=== PATIENT | male | born 1960 | race Caucasian/White ===

== ENCOUNTER 2023-07-06 18:35 | Observation (INO) ==
[2023-07-06 19:29] LABS: Basophils # (auto) 0.12 K/uL (0.00-0.20); Basophils % (auto) 1.7 %; Eosinophils # (auto) 0.76 K/uL (0.00-0.50); Hematocrit (blood only) 46.3 % (42.0-52.0); Hemoglobin 15.5 g/dl (14.0-18.0); Immature Granulocytes # (auto) 0.02 K/uL (0.01-0.20); Immature Granulocytes % (auto) 0.3 %; Lymphocytes # (auto) 1.52 K/uL (1.20-3.40); Mean Corpuscular Hemoglobin 29.8 pg (25.0-34.0); Mean Corpuscular Hgb Conc 33.5 g/dL (32.0-36.0); Mean Corpuscular Volume 88.9 fL (80.0-100.0); Mean Platelet Volume 8.9 fL (9.4-12.4); Monocytes # (auto) 0.65 K/uL (0.11-0.59); Monocytes % (auto) 9.4 %; Neutrophils # (auto) 3.83 K/uL (1.40-6.50); Neutrophils % (auto) 55.6 %; Platelet Count 221 K/uL (130-400); RDW Coefficient of Variation 13.2 % (11.5-14.5); RDW Standard Deviation 43.2 fL (36.4-46.3); Red Blood Count 5.21 M/uL (4.70-6.10)
[2023-07-06 19:43] LABS: Albumin Globulin Ratio 1.6 (0.9-2); Albumin Level 4.4 gm/dl (3.4-5.0); BUN Creatinine Ratio 22.4 (10-20); Bilirubin,Total 0.5 mg/dl (0.2-1.0); Calcium 9.6 mg/dl (8.6-10.3); Creatinine Clr Calc Pharmacy 117.3 ml/min; Globulin 2.8 gm/dl (2.5-4.0); Potassium 4.2 mmol/L (3.5-5.1); Total Protein 7.2 gm/dl (6.0-8.3)
[2023-07-06] MEDS ORDERED: ALBUTEROL 0.083% NEBU SOLN 3 ML VIAL NEB STA (19:47)
[2023-07-06 19:54] LABS: INR 0.9 (0.9-1.1); Partial Thromboplastin Ratio 0.9; Partial Thromboplastin Time 26 Seconds (21-31); Prothrombin Time 10.3 Seconds (9.0-12.0)
[2023-07-06 19:55] LABS: D Dimer 1050 ug/L FEU (0-500)
[2023-07-06 20:13] LABS: Adenovirus PCR Not Detected (NotDetected); Bordetella parapertussis PCR Not Detected (NotDetected); Bordetella pertussis PCR Not Detected (NotDetected); Chlamydia pneumoniae PCR Not Detected (NotDetected); Coronavirus 229E PCR Not Detected (NotDetected); Coronavirus CoV-2 (COVID19)PCR Not Detected (NotDetected); Coronavirus HKU1 PCR Not Detected (NotDetected); Coronavirus NL63 PCR Not Detected (NotDetected); Coronavirus OC43PCR Not Detected (NotDetected); Human Metapneumovirus PCR Not Detected (NotDetected); Influenza A PCR Not Detected (NotDetected); Influenza B PCR Not Detected (NotDetected); Mycoplasma pneumoniae PCR Not Detected (NotDetected); Parainfluenza Virus 1 PCR Not Detected (NotDetected); Parainfluenza Virus 2 PCR Not Detected (NotDetected); Parainfluenza Virus 3 PCR Not Detected (NotDetected); Parainfluenza Virus 4 PCR Not Detected (NotDetected); Respiratory Syncytial VirusPCR Not Detected (NotDetected); Rhinovirus/Enterovirus PCR Not Detected (NotDetected)
[2023-07-06] MEDS ORDERED: methylPREDNISolone 125 MG/2 ML VIAL IV STA (20:21)
--- NOTE | 2023-07-06 20:42 | Emergency Department Note ---
Impression & Plan Asthma exacerbation ED Provider Note NAME: JUAREZ SOTELO AGE: 62 SEX: M : 1960 ARRIVES VIA: Walk-In INFORMANT: Patient, ED PROVIDER(S): Belkis Cloud MD CHIEF COMPLAINT: Shortness of breath, wheezing HPI: This is 62-year-old male multiple presenting for shortness of breath and wheezing. Patient states that he has had persistent about 2 months. He states he is having difficulty breathing as result of his wheezing. He notes that he has tried antibiotics and steroids from his primary care doctor which did not improve his symptoms. He felt he was getting worse. He went back to his primary care doctor a few weeks later and noticed that he had not worsening shortness of breath, difficulty with orthopnea. He had a CTA of the chest done last week, 8 days ago. This did not reveal any pneumonia, does show bronchitis, no PE noted. He has had since then he has not had any improvement in his symptoms despite taking nebulizer treatment. His nebulizers temporarily improve his symptoms but he feels he is getting worse still. He continues to have difficulty breathing, no chest pain, no nausea or vomiting. No fever ROS: See above HPI for pertinent positives & negatives. A total of 10 systems reviewed and were otherwise negative. PAST MEDICAL HISTORY: See Below PAST SURGICAL HISTORY: See Below FAMILY HISTORY: See Below SOCIAL HISTORY: See Below HOME MEDICATIONS: See Below ALLERGIES: See Below VITALS: See Below PHYSICAL EXAMINATION: General: resting comfortably in no acute distress Head: Normocephalic and atraumatic Eyes: Normal inspection, extraocular muscles intact Ear, nose, throat: Normal external exam Neck: Normal range of motion Respiratory: Wheezing in all lung Cardiovascular: Regular rate/rhythm, no murmur GI: soft, nontender, no guarding or rebound Extremities: nontender, moves all extremities Neuro: The patient awake and alert, appropriately conversive, no focal deficits, symmetric faces Skin: Warm, dry, and intact MEDICAL DECISION MAKING: This is 62-year-old male presenting for shortness of breath and wheezing. Patient has 2 months of symptoms. Patient is significantly wheezy here. Patient has orthopnea. Otherwise patient has a left lower extremity swelling, patient thinks it is somewhat chronic as he has had hardware in that ankle. Otherwise negative CTA done about 8 days ago; showing bronchitis. -Consider CHF, pneumonia, asthma, COPD -Blood work shows no significant leukocytosis, anemia, electrolyte disturbances, creatinine elevation, transaminitis, negative viral panel -D-dimer is elevated however patient had a negative CTA done 8 days ago with essentially no change in his symptoms, no worsening and vital signs are reassuring without significant hypoxia or tachycardia -Chest Xray independently interpreted by me showing no pneumothorax, focal opacity, or pleural effusions. -Despite 2 rounds of albuterol, patient continues to have wheezing and slight difficulty breathing -All vital signs are stable, he has continued wheezing, will admit for further workup/treatment of his possible asthma exacerbation Differential diagnosis: See above ER treatment provided: See below Diagnostics interpreted by me: ECG: None Cardiac Monitoring: An order was placed for continuous cardiac monitoring. The monitor shows a rate of 84 with rhythm. Laboratory studies: As stated above and show below. Imaging studies: See below. Past Med/Surg History Medical History Cervical radicular pain Cervical stenosis of spine Colon polyps Diverticular disease History of diverticulitis History of kidney stones History of tachycardia Hyperlipemia Hypertension Prediabetes recently prescribed metformin -- has not started taking yet PVC's (premature ventricular contractions) Sleep apnea does not tolerate CPAP Surgical History History of tonsillectomy History of ankle surgery History of lithotripsy History of esophagogastroduodenoscopy (EGD) History of colonoscopy History of cardiac catheterization History of cardiac radiofrequency ablation Family History Daughter Breast cancer Sister Ovarian cancer Father Myocardial infarction Other No family history of adverse response to anesthesia Denies family history of Prostate cancer Colorectal cancer Social History Smoking Status: Never smoker Second Hand Exposure: No; Do You Dip or Chew Tobacco: No; Hx Alcohol Use: Yes Alcohol Intake Frequency: Monthly or Less Hx Substance Use: No Preferred Language: Occitan Communication Ability: Effective Visual Impairment: No Limitations Hearing Ability: Normal Veterinary Meat Inspector Required: No Beliefs That Will Affect Care: None marital status: / Current Living Situation: Spouse current occupational status: employed current occupation: plant engineering manager Feels Safe at Home: Yes Childhood Exposure to Second-Hand Smoke: No Diet: regular Diet Comment: Regular caffeine: Yes during the past year weight has: remained stable Dental Care, Regularly: No Physical Activity Frequency: 1-2 Times per Week Seatbelt Use: always Assistive Devices: Glasses Allergies Allergies Allergy/AdvReac Type Severity Reaction Status Date / Time No Known Allergies Allergy Verified 07/01/23 11:14 Home Meds Previous Rx's Medication Instructions Recorded metoprolol succinate 25 mg 25 mg PO QAM #90 tabs 05/24/23 tablet,extended release 24 hr ramipril 10 mg capsule 10 mg PO QAM #90 caps 05/24/23 rosuvastatin 20 mg tablet 20 mg PO QAM #90 tabs 05/24/23 albuterol sulfate 90 mcg/actuation 2 puff inhalation Q6H PRN 05/28/23 aerosol inhaler shortness of breath or wheezing #6.7 grams albuterol sulfate 1.25 mg/3 mL 1.25 mg (3 mL) inhalation QID PRN 07/01/23 solution for nebulization shortness of breath or wheezing #75 mL compressor, for nebulizer #1 ea 07/01/23 dextromethorphan HBr 15 mg/5 mL 15 mg (5 mL) PO Q8H PRN cough #118 07/06/23 oral liquid mL Results & Data (ED) Vital Signs Vital Signs - 24 hr 07/06/23 18:39 07/06/23 18:46 07/06/23 18:46 Temperature 36.8 C Temperature Source Temporal Artery Scan Pulse Rate 85 84 85 Pulse Rate from SpO2 Sensor 85 Respiratory Rate 20 16 Blood Pressure 186/115 H Blood Pressure Mean 138 Pulse Oximetry 95 94 Oxygen Delivery Method Room Air Oxygen Flow Rate Sepsis Recent Fever Within 48 Hours No Sepsis New/Unexplained Change in Mental Status No Sepsis Action Taken by Nursing No Action Required 07/06/23 18:50 07/06/23 18:51 07/06/23 19:00 Temperature Temperature Source Pulse Rate 86 111 H Pulse Rate from SpO2 Sensor 85 101 H Respiratory Rate 16 24 Blood Pressure Blood Pressure Mean Pulse Oximetry 95 95 97 Oxygen Delivery Method Room Air Oxygen Flow Rate 0 Sepsis Recent Fever Within 48 Hours Sepsis New/Unexplained Change in Mental Status Sepsis Action Taken by Nursing 07/06/23 19:10 07/06/23 19:16 07/06/23 19:18 Temperature Temperature Source Pulse Rate 81 Pulse Rate from SpO2 Sensor 82 Respiratory Rate 23 Blood Pressure 129/91 Blood Pressure Mean 94 Pulse Oximetry 94 Oxygen Delivery Method Room Air Oxygen Flow Rate Sepsis Recent Fever Within 48 Hours Sepsis New/Unexplained Change in Mental Status Sepsis Action Taken by Nursing 07/06/23 19:18 07/06/23 19:20 07/06/23 19:30 Temperature Temperature Source Pulse Rate 80 79 Pulse Rate from SpO2 Sensor 85 79 Respiratory Rate 17 20 Blood Pressure 111/69 Blood Pressure Mean 92 Pulse Oximetry 92 95 Oxygen Delivery Method Oxygen Flow Rate Sepsis Recent Fever Within 48 Hours Sepsis New/Unexplained Change in Mental Status Sepsis Action Taken by Nursing 07/06/23 19:30 07/06/23 19:40 07/06/23 19:50 Temperature Temperature Source Pulse Rate 92 H 84 77 Pulse Rate from SpO2 Sensor 90 83 76 Respiratory Rate 16 21 23 Blood Pressure Blood Pressure Mean Pulse Oximetry 94 93 93 Oxygen Delivery Method Oxygen Flow Rate Sepsis Recent Fever Within 48 Hours Sepsis New/Unexplained Change in Mental Status Sepsis Action Taken by Nursing 07/06/23 20:00 07/06/23 20:07 07/06/23 20:07 Temperature Temperature Source Pulse Rate 72 81 Pulse Rate from SpO2 Sensor 71 79 Respiratory Rate 18 23 Blood Pressure 137/90 Blood Pressure Mean 96 Pulse Oximetry 94 95 Oxygen Delivery Method Oxygen Flow Rate Sepsis Recent Fever Within 48 Hours Sepsis New/Unexplained Change in Mental Status Sepsis Action Taken by Nursing 07/06/23 20:10 07/06/23 20:20 07/06/23 20:46 Temperature Temperature Source Pulse Rate 94 H 77 86 Pulse Rate from SpO2 Sensor 98 H 71 89 Respiratory Rate 23 15 15 Blood Pressure Blood Pressure Mean Pulse Oximetry 98 97 94 Oxygen Delivery Method Oxygen Flow Rate Sepsis Recent Fever Within 48 Hours Sepsis New/Unexplained Change in Mental Status Sepsis Action Taken by Nursing 07/06/23 20:50 07/06/23 21:00 07/06/23 21:10 Temperature Temperature Source Pulse Rate 77 82 79 Pulse Rate from SpO2 Sensor 78 81 79 Respiratory Rate 21 24 16 Blood Pressure Blood Pressure Mean Pulse Oximetry 94 94 92 Oxygen Delivery Method Oxygen Flow Rate Sepsis Recent Fever Within 48 Hours Sepsis New/Unexplained Change in Mental Status Sepsis Action Taken by Nursing 07/06/23 21:20 07/06/23 21:30 07/06/23 21:40 Temperature Temperature Source Pulse Rate 83 78 75 Pulse Rate from SpO2 Sensor 82 77 77 Respiratory Rate 19 22 21 Blood Pressure Blood Pressure Mean Pulse Oximetry 94 94 91 Oxygen Delivery Method Oxygen Flow Rate Sepsis Recent Fever Within 48 Hours Sepsis New/Unexplained Change in Mental Status Sepsis Action Taken by Nursing 07/06/23 21:50 07/06/23 22:00 07/06/23 22:10 Temperature Temperature Source Pulse Rate 77 79 76 Pulse Rate from SpO2 Sensor 78 78 79 Respiratory Rate 20 20 19 Blood Pressure Blood Pressure Mean Pulse Oximetry 91 91 90 Oxygen Delivery Method Oxygen Flow Rate Sepsis Recent Fever Within 48 Hours Sepsis New/Unexplained Change in Mental Status Sepsis Action Taken by Nursing 07/06/23 22:20 07/06/23 22:30 07/06/23 22:40 Temperature Temperature Source Pulse Rate 81 88 75 Pulse Rate from SpO2 Sensor 80 85 74 Respiratory Rate 19 18 17 Blood Pressure Blood Pressure Mean Pulse Oximetry 92 90 90 Oxygen Delivery Method Oxygen Flow Rate Sepsis Recent Fever Within 48 Hours Sepsis New/Unexplained Change in Mental Status Sepsis Action Taken by Nursing 07/06/23 23:02 Temperature Temperature Source Pulse Rate 84 Pulse Rate from SpO2 Sensor Respiratory Rate Blood Pressure Blood Pressure Mean Pulse Oximetry Oxygen Delivery Method Oxygen Flow Rate Sepsis Recent Fever Within 48 Hours Sepsis New/Unexplained Change in Mental Status Sepsis Action Taken by Nursing Laboratory Data 07/06/23 19:10 07/06/23 19:10 Lab Results 07/06/23 07/06/23 Range/Units 19:05 19:10 WBC 6.90 (4.8-10.8) K/ul RBC 5.21 (4.70-6.10) M/uL Hgb 15.5 (14.0-18.0) g/dl Hct 46.3 (42.0-52.0) % MCV 88.9 (80.0-100.0) fL MCH 29.8 (25.0-34.0) pg MCHC 33.5 (32.0-36.0) g/dL RDW Std Deviation 43.2 (36.4-46.3) fL RDW Coeff of Del 13.2 (11.5-14.5) % Plt Count 221 (130-400) K/uL MPV 8.9 L (9.4-12.4) fL Immature Gran % (Auto) 0.3 % Neut % (Auto) 55.6 % Lymph % (Auto) 22.0 % Ralls % (Auto) 9.4 % Eos % (Auto) 11.0 % Baso % (Auto) 1.7 % Neut # (Auto) 3.83 (1.40-6.50) K/uL Lymph # (Auto) 1.52 (1.20-3.40) K/uL Ralls # (Auto) 0.65 H (0.11-0.59) K/uL Eos # (Auto) 0.76 H (0.00-0.50) K/uL Baso # (Auto) 0.12 (0.00-0.20) K/uL Immature Gran # (Auto) 0.02 (0.01-0.20) K/uL PT 10.3 (9.0-12.0) Seconds INR 0.9 (0.9-1.1) APTT 26 (21-31) Seconds PTT Ratio 0.9 D-Dimer 1050 H* (0-500) ug/L FEU Sodium 142 (136-145) mmol/L Potassium 4.2 (3.5-5.1) mmol/L Chloride 109 H (98-107) mmol/L Carbon Dioxide 26 (21-32) mmol/L Anion Gap 7 (3-11) BUN 19 (6-23) mg/dl Creatinine 0.85 (0.6-1.4) mg/dl Est Cr Clr Drug Dosing 117.3 ml/min Est GFR ( Amer) 109.0 ml/min Est GFR (Non-Af Amer) 94.0 ml/min BUN/Creatinine Ratio 22.4 H (10-20) Glucose 74 (70-99(Fasting)) mg/dl Calcium 9.6 (8.6-10.3) mg/dl Total Bilirubin 0.5 (0.2-1.0) mg/dl AST 25 (13-39) U/L ALT 21 (7-52) U/L Alkaline Phosphatase 52 (34-104) U/L B-Natriuretic Peptide 18 (0-100) pg/ml Total Protein 7.2 (6.0-8.3) gm/dl Albumin 4.4 (3.4-5.0) gm/dl Globulin 2.8 (2.5-4.0) gm/dl Albumin/Globulin Ratio 1.6 (0.9-2) Adenovirus (PCR) Not Detected (NotDetected) B. pertussis DNA (PCR) Not Detected (NotDetected) B.parapertussis DNA PCR Not Detected (NotDetected) C. pneumoniae DNA (PCR) Not Detected (NotDetected) Coronavirus OC43 (PCR) Not Detected (NotDetected) Coronavirus HKU1 (PCR) Not Detected (NotDetected) Coronavirus 229E (PCR) Not Detected (NotDetected) SARS-CoV-2 (PCR) Not Detected (NotDetected) Coronavirus NL63 (PCR) Not Detected (NotDetected) Human Metapneumovir PCR Not Detected (NotDetected) Influenza Type A (PCR) Not Detected (NotDetected) Influenza Type B (PCR) Not Detected (NotDetected) M. pneumoniae (PCR) Not Detected (NotDetected) Parainfluenza 1 (PCR) Not Detected (NotDetected) Parainfluenza 2 (PCR) Not Detected (NotDetected) Parainfluenza 3 (PCR) Not Detected (NotDetected) Parainfluenza 4 (PCR) Not Detected (NotDetected) RSV (PCR) Not Detected (NotDetected) Entero/Rhino (PCR) Not Detected (NotDetected) Administered Medications Discontinued Medications Albuterol (Albuterol 0.083% Nebu Soln 3 Ml Vial) 2.5 mg NEB NOW STA; Protocol Stop: 07/06/23 19:48 Last Admin: 07/06/23 20:07 Dose: 2.5 mg Documented By: JO Albuterol (Albuterol 0.5% Neb Soln 2.5 Mg/0.5 Ml Vial) 2.5 mg NEB NOW STA; Protocol Stop: 07/06/23 21:17 Last Admin: 07/06/23 21:20 Dose: 2.5 mg Documented By: JO Methylprednisolone (Methylprednisolone 125 Mg/2 Ml Vial) 125 mg IV NOW STA Stop: 07/06/23 20:22 Last Admin: 07/06/23 20:24 Dose: 125 mg Documented By: JO Imaging Data Radiologist's Impression: Venous Doppler Study 07/06/23 20:21 Exam(s): US VENOUS LEFT LOWER EXTREMITY EXAM: US Duplex Left Lower Extremity Veins CLINICAL HISTORY: Reason for exam: Swelling. TECHNIQUE: Real-time duplex ultrasound scan of the left lower extremity veins integrating B-mode two-dimensional vascular structure, Doppler spectral analysis, color flow Doppler imaging and compression. COMPARISON: No relevant prior studies available. FINDINGS: Deep veins: Echogenic bands in the left popliteal vein which may represent a sequelae of chronic deep venous thrombosis. No acute DVT in the visualized common femoral, femoral, proximal deep femoral or popliteal veins. The veins demonstrate normal color flow, are normally compressible, with normal phasic flow and/or augmentation response. Soft tissues: No acute findings. No popliteal cyst. IMPRESSION: No evidence of acute left lower extremity deep venous thrombosis. Echogenic bands in the left popliteal vein which may represent a sequelae of chronic deep venous thrombosis. Electronically signed by: Khoa Cloud M.D. 07/07/23 00:46 AM Discharge Plan Visit Data Chief Complaint: Shortness of Breath/Dyspnea Stated Complaint: SOB, COUGH, CHEST TIGHTNESS ED Provider: Belkis Cloud Discharge Problem: Asthma exacerbation Patient Disposition: Admitted As Inpatient Discharge Instructions Interventions: ED Discharge Assessment Last Done: 07/07/23 00:26
[2023-07-06] MEDS ORDERED: ALBUTEROL 0.5% NEB SOLN 2.5 MG/0.5 ML VIAL NEB STA (21:16)
--- NOTE | 2023-07-06 22:24 | History & Physical Report ---
Date of Service July 06, 2023 Assessment & Plan (1) Dyspnea: Plan: Patient is a 62-year-old male with past medical history of obesity, cervical stenosis of spine, hypertension, prediabetes, hyperlipidemia, and PVCs who presents to the hospital for evaluation of shortness of breath. Unsure of specific etiology at this time but seems to be an exacerbation of a chronic issue. -Admit to [facility], no telemetry indication at this time -Imaging overall showing no pathology excluding pulmonary embolism, pneumonia, or consolidation -Likely multifactorial in the setting of mild bronchitis, asthma exacerbation, obesity, and possibly undiagnosed sleep apnea -Patient would benefit from pulmonary function testing which I recommend be done outpatient -DuoNeb every 4 hours as needed for wheezing -See asthma exacerbation treatment below (2) Asthma exacerbation: Plan: -Started on 125 mg of methylprednisolone in the ED, switch to 40 mg daily for 5 days for clinical -Seems asthma has been uncontrolled for some time likely due to recent bronchitis in the past 2 months, add Symbicort twice daily to start tomorrow -Patient will benefit from pulmonary function test in outpatient setting -If exacerbation worsens or is refractory to above treatment, will additionally give magnesium. (3) Hypoxia: Plan: -Secondary to conditions above -Witnessed O2 level dropped to 87 was in the room with good waveform prior to conversing with patient. -O2 goal of 90% (4) Cough: Plan: -Secondary to bronchitis and postnasal drip -Start Mucinex in addition to IV steroid -Robitussin AC as needed (5) Obesity: Plan: - As above, may be contributing and causing a restrictive pattern (6) Cervical stenosis of spine: Plan: - Noted, no medications for this (7) Hypertension: Plan: -Continue ramipril -In theory LEBRON inhibitors can have the side effect of cough at any time despite long-term use, consider switching to ARB (8) Prediabetes: Plan: - Noted, no need for insulin at this time (9) Hyperlipemia: Plan: - Continue statin Plan Disposition: Admit to [facility] for breathing treatments and monitoring patient DVT prophylaxis: Low risk Diet: Regular CODE STATUS: Full code Admission and Anticipated Discharge Date Admission Date: Attending addendum: I have physically seen this patient, have supervised the medical residents activities, and agree with the H&P unless as otherwise noted. Assessment and Plan: Asthma exacerbation with hypoxia/bronchitis- Presenting symptom of dyspnea on exertion Status post methylprednisolone 125 mg IV in ED Admitted on methylprednisolone 40 mg IV daily Duonebs every 4 hours while awake and every 2 hours when necessary. Azithromycin 500 mg IV daily for likely bronchitis Guaifenesin extended release 12 mg p.o. twice daily Starting Symbicort 1 inhalation twice daily tomorrow O2 saturation on room air 90%, placed on oxygen, titrate to keep pulse ox around 94% Hypertension- Continue metoprolol succinate and ramipril with hold parameters Hyperlipidemia- Continue rosuvastatin History of Present Illness Chief Complaint: Dyspnea Primary Care Provider: AGUSTO Meyer Patient is a 62-year-old male with past medical history of obesity, cervical stenosis of spine, hypertension, prediabetes, hyperlipidemia, and PVCs who presents to the hospital for evaluation of shortness of breath. It seems that this has been a 2-month long issue since being diagnosed with bronchitis. He has been on several antibiotics and bouts of steroids improve his symptoms at the time but do not seem to be resolving the problem. He has occasional flares of coughing that is dry and nonproductive. No history of hemoptysis. Denies any nausea or vomiting. No history of pulmonary function testing. He does take an inhaler at home but states that this does not always help his shortness of breath. Denies any chest pain or headache. Patient is a never smoker. No other complaints at this time. ED course: Patient brought back and evaluated by provider. Labs are unremarkable other than a D-dimer of greater than 1000. Chest x-ray is unremarkable. Patient had CTA of the chest on 07/01/2023 with evidence of mild bronchitis without pulmonary embolism. Venous Doppler was ordered due to elevated D-dimer and is pending at the time of writing this note. Patient was given steroids and DuoNeb with some improvement. The hospitalist service was consulted for admission for subjective dyspnea without hypoxia. Allergies Allergy/AdvReac Type Severity Reaction Status Date / Time No Known Allergies Allergy Verified 07/01/23 11:14 Home Medications Medication Instructions Recorded Confirmed Type metoprolol succinate 25 mg 25 mg PO QAM #90 tabs 05/24/23 07/06/23 Rx tablet,extended release 24 hr ramipril 10 mg capsule 10 mg PO QAM #90 caps 05/24/23 07/06/23 Rx rosuvastatin 20 mg tablet 20 mg PO QAM #90 tabs 05/24/23 07/06/23 Rx albuterol sulfate 90 mcg/actuation 2 puff inhalation Q6H PRN 05/28/23 07/06/23 Rx aerosol inhaler shortness of breath or wheezing #6.7 grams albuterol sulfate 1.25 mg/3 mL 1.25 mg (3 mL) inhalation QID PRN 07/01/23 Rx solution for nebulization shortness of breath or wheezing #75 mL compressor, for nebulizer #1 ea 07/01/23 07/06/23 Rx dextromethorphan HBr 15 mg/5 mL 15 mg (5 mL) PO Q8H PRN cough #118 07/06/23 07/06/23 Rx oral liquid mL Past Med/Surg History Medical History Cervical radicular pain Cervical stenosis of spine Colon polyps Diverticular disease History of diverticulitis History of kidney stones History of tachycardia Hyperlipemia Hypertension Prediabetes recently prescribed metformin -- has not started taking yet PVC's (premature ventricular contractions) Sleep apnea does not tolerate CPAP Surgical History History of tonsillectomy History of ankle surgery History of lithotripsy History of esophagogastroduodenoscopy (EGD) History of colonoscopy History of cardiac catheterization History of cardiac radiofrequency ablation Family History Daughter Breast cancer Sister Ovarian cancer Father Myocardial infarction Other No family history of adverse response to anesthesia Denies family history of Prostate cancer Colorectal cancer Social History Smoking Status: Never smoker Tobacco Type: Smokeless Tobacco (Dip or Chew) Second Hand Exposure: No; Do You Dip or Chew Tobacco: No; Hx Alcohol Use: Yes Alcohol type: beer Alcohol Intake Frequency: Monthly or Less Hx Substance Use: No Preferred Language: Syriac Communication Ability: Effective Visual Impairment: No Limitations Hearing Ability: Normal Janitorial Cleaner Required: No Beliefs That Will Affect Care: None marital status: / Current Living Situation: Other Current Living Situation Comment: lives w/ sister current occupational status: employed current occupation: gas plant worker Other Information That Helps Us Care for You: No Feels Safe at Home: Yes Safety Concerns: Feels Safe At This Time Childhood Exposure to Second-Hand Smoke: No Diet: regular Diet Comment: Regular caffeine: Yes during the past year weight has: remained stable Dental Care, Regularly: No Physical Activity Frequency: 1-2 Times per Week Seatbelt Use: always Assistive Devices: Nebulizer Review of Systems Review of Systems: All systems reviewed & are unremarkable except as noted in HPI & below Physical Exam Constitutional: WD/WN, vitals as above + obese Eyes: + anicteric sclerae Neck: trachea midline, no thyromegaly + thick neck Respiratory: normal respiratory effort Auscultation: + wheezes (diffuse) Cardiovascular: RRR, no murmur, no edema Vessels: no JVD Gastrointestinal (Abdomen): normal bowel sounds, soft, nontender, no hepatosplenomegaly Musculoskeletal: Head/Neck/Chest: normocephalic and head atraumatic Skin: no rashes, warm and dry Neurologic: moves all extremities Results & Data Results & Data Vital Signs (Past 12 Hours) Vital Signs Temp Pulse Resp BP Pulse Ox O2 Del Method O2 Flow Rate 07/06/23 22:00 79 20 91 07/06/23 21:50 77 20 91 07/06/23 21:40 75 21 91 07/06/23 21:30 78 22 94 07/06/23 21:20 83 19 94 07/06/23 21:10 79 16 92 07/06/23 21:00 82 24 94 07/06/23 20:50 77 21 94 07/06/23 20:46 86 15 94 07/06/23 20:20 77 15 97 07/06/23 20:10 94 H 23 98 07/06/23 20:07 137/90 07/06/23 20:07 81 23 95 07/06/23 20:00 72 18 94 07/06/23 19:50 77 23 93 07/06/23 19:40 84 21 93 07/06/23 19:30 92 H 16 94 07/06/23 19:30 111/69 07/06/23 19:20 79 20 95 07/06/23 19:18 80 17 92 07/06/23 19:18 129/91 12/19/23 19:16 Room Air 07/06/23 19:10 81 23 94 07/06/23 19:00 111 H 24 97 07/06/23 18:51 95 Room Air 0 07/06/23 18:50 86 16 95 07/06/23 18:46 85 16 94 07/06/23 18:46 84 07/06/23 18:39 36.8 C 85 20 186/115 H 95 Room Air (5) Obesity Body mass index: BMI 37.0-37.9 Obesity classification: adult class 2 (BMI 35 - 39.9) Obesity type: unspecified obesity type Serious obesity comorbidity presence: without serious comorbidity Qualified Code(s): E66.9 - Obesity, unspecified; Z68.37 - Body mass index [BMI] 37.0-37.9, adult (7) Hypertension Hypertension type: primary hypertension Qualified Code(s): I10 - Essential (primary) hypertension (9) Hyperlipemia Hyperlipidemia type: mixed hyperlipidemia Qualified Code(s): E78.2 - Mixed hyperlipidemia
[2023-07-07] MEDS ORDERED: ACETAMINOPHEN 325 MG TAB PO PRN (00:25)
--- NOTE | 2023-07-07 00:46 | Ultrasound Report ---
Exam(s): US VENOUS LEFT LOWER EXTREMITY EXAM: US Duplex Left Lower Extremity Veins CLINICAL HISTORY: Reason for exam: Swelling. TECHNIQUE: Real-time duplex ultrasound scan of the left lower extremity veins integrating B-mode two-dimensional vascular structure, Doppler spectral analysis, color flow Doppler imaging and compression. COMPARISON: No relevant prior studies available. FINDINGS: Deep veins: Echogenic bands in the left popliteal vein which may represent a sequelae of chronic deep venous thrombosis. No acute DVT in the visualized common femoral, femoral, proximal deep femoral or popliteal veins. The veins demonstrate normal color flow, are normally compressible, with normal phasic flow and/or augmentation response. Soft tissues: No acute findings. No popliteal cyst. IMPRESSION: No evidence of acute left lower extremity deep venous thrombosis. Echogenic bands in the left popliteal vein which may represent a sequelae of chronic deep venous thrombosis. Electronically signed by: Khoa Cloud M.D. 07/07/23 00:46 AM
[2023-07-07] MEDS: ALBUT/IPRATROP 3MG/0.5MG NEB 3 ML VIAL NEB PRN ×2 (01:37→14:05)
[2023-07-07] MEDS: ROSUVASTATIN CALCIUM 20 MG TAB PO SCH (07:46)
[2023-07-07] MEDS: ENALAPRIL MALEATE 10 MG TAB PO SCH (07:46)
[2023-07-07] MEDS: METOPROLOL SUCC 25MG EXT REL TAB PO SCH (07:46)
[2023-07-07] MEDS: FLUTICASONE/VILANTEROL 100/25MCG 14 PUFFS/INHALER INH SCH (07:46)
[2023-07-07 07:50] LABS: Hematocrit (blood only) 48.3 % (42.0-52.0); Hemoglobin 16.1 g/dl (14.0-18.0); Mean Corpuscular Hemoglobin 29.5 pg (25.0-34.0); Mean Corpuscular Hgb Conc 33.3 g/dL (32.0-36.0); Mean Corpuscular Volume 88.6 fL (80.0-100.0); Mean Platelet Volume 9.2 fL (9.4-12.4); Platelet Count 242 K/uL (130-400); RDW Coefficient of Variation 13.2 % (11.5-14.5); RDW Standard Deviation 42.5 fL (36.4-46.3); Red Blood Count 5.45 M/uL (4.70-6.10)
--- NOTE | 2023-07-07 07:58 | XRay Report ---
XR chest 1V portable HISTORY: Dyspnea COMPARISON: Chest 06/07/2023. FINDINGS: There are low lung volumes. The heart is mildly enlarged. No focal lung consolidations to s uggest a pneumonia. No evidence for pulmonary edema. No acute fractures identified. IMPRESSION: Mild cardiomegaly. Otherwise, no acute process within the chest. ACT 112: Negative or not required by law. Electronically signed by: Prashant Peña M.D. 07/07/2023 7:57 AM
[2023-07-07 08:14] LABS: BUN Creatinine Ratio 26.5 (10-20); Calcium 9.7 mg/dl (8.6-10.3); Creatinine Clr Calc Pharmacy 125.7 ml/min; Est GFR (African American) 110.1 ml/min; Potassium 4.5 mmol/L (3.5-5.1)
[2023-07-07] MEDS ORDERED: methylPREDNISolone 40 MG in SYRINGE 0 ML IV SCH (09:00)
[2023-07-07 09:01] LABS: Magnesium 2.2 mg/dl (1.7-2.4)
--- NOTE | 2023-07-07 18:41 | Hospitalist Progress Note ---
Date of Service July 07, 2023 Assessment & Plan (1) Dyspnea: Plan: Unsure of specific etiology at this time but seems to be an exacerbation of a chronic issue. -Imaging overall showing no pathology excluding pulmonary embolism, pneumonia, or consolidation -CTA done 07/01 -Patient would benefit from pulmonary function testing, which could be done outpatient -DuoNeb every 4 hours as needed for wheezing -Patient reporting change in sputum color --> sputum cultured ordered. -Incentive Spirometer -Will check CT sinus and echo (2) Asthma exacerbation: Plan: Patient tells me he has never been diagnosed with asthma in the past, had just received inhalers and nebulizer machine in the last two months. -Started on 125 mg of methylprednisolone in the ED, switch to 40 mg daily 07/07 - increased to BID -Add Symbicort twice daily to start tomorrow -Patient will benefit from pulmonary function test in outpatient setting (3) Hypoxia: Plan: -Secondary to conditions above -Currently on room air -O2 goal of 90% (4) Cough: Plan: -Secondary to bronchitis and postnasal drip -Start Mucinex in addition to IV steroid -Robitussin AC as needed (5) Obesity: Plan: - As above, may be contributing and causing a restrictive pattern (6) Cervical stenosis of spine: Plan: - Noted, no medications for this (7) Hypertension: Plan: -Continue ramipril -In theory LEBRON inhibitors can have the side effect of cough at any time despite long-term use, consider switching to ARB (8) Prediabetes: Plan: - Noted, no need for insulin at this time (9) Hyperlipemia: Plan: - Continue statin Plan Dispo: continued inpatient stay DVT prophylaxis: Low risk Admission and Anticipated Discharge Date Admission Date: July 06, 2023 Subjective Patient seen just after lunch sitting at the side of the bed. States he has been dealing with cough and shortness of breath for the last two months. Has been to PCP and ER multiple times given abx, steroids and cough medicine and nothing seems to help. States his friends kicked him out of [employer] camp because he was coughing so much. However today is the best he has felt in the last two months, but gets short of breath still very easily. Cough has been mainly nonproductive. Has some swelling in the left leg but has had multiple surgery and reports "pins and rods" and reports at baseline. No swelling in the other legs Reports issues with tachycardia ~30 years ago, had to have cardiac ablation x3, last time being about 12 years ago and has not had issues yet. but reports "would not be surprised if my heart was causing this" Of note - his in October and has lost ~40 lbs since then. has been more active. Review of Systems Review of Systems: All systems reviewed & are unremarkable except as noted in Subjective Physical Exam Physical Exam: General: WN/WD, NAD, VS as above Resp: quick to be short of breath, diminished in the based, inspiratory and expiratory wheeze throughout CV: RRR, no murmur, Abd: normal bowel sounds, non tender, no hepatosplenomegaly Extremities: Moves all extremities, Edema to the left leg but patient reports chronic s/p surgery, no edema to the right leg. Neuro: A&O x3, Skin: intact, no lesions noted Results & Data Results & Data Vital Signs (Past 12 Hours) Vital Signs Temp Pulse Resp BP Pulse Ox O2 Del Method 07/07/23 15:24 37.0 C 99 H 18 136/89 92 Room Air 07/07/23 14:08 Room Air 07/07/23 14:05 102 H 24 89 L Room Air 07/07/23 09:10 Room Air 07/07/23 07:31 36.5 C 104 H 16 154/100 H 93 Room Air Laboratory Results CBC and chemistry and Mag reviewed PG Care Time/CCT Total # of Minutes Spent Total Time Spent with Patient: Total time spent is greater than 50% in coordination of care (as documented) at patient's floor/unit and/or counseling patient: Coding Level of Care Code 76388 SUB INP/OBS CARE 2/35MIN Diagnoses Dyspnea R06.00 Asthma exacerbation J45.901 Hypoxia R09.02 Cough R05.9 Class 2 obesity without serious comorbidity with body mass index (BMI) of 37.0 to 37.9 in adult, unspecified obesity type E66.9; Z68.37 Body mass index: BMI 37.0-37.9 Obesity classification: adult class 2 (BMI 35 - 39.9) Obesity type: unspecified obesity type Serious obesity comorbidity presence: without serious comorbidity Cervical stenosis of spine M48.02 Primary hypertension I10 Hypertension type: primary hypertension Prediabetes R73.03 Mixed hyperlipidemia E78.2 Hyperlipidemia type: mixed hyperlipidemia (5) Obesity Body mass index: BMI 37.0-37.9 Obesity classification: adult class 2 (BMI 35 - 39.9) Obesity type: unspecified obesity type Serious obesity comorbidity presence: without serious comorbidity Qualified Code(s): E66.9 - Obesity, unspecified; Z68.37 - Body mass index [BMI] 37.0-37.9, adult (7) Hypertension Hypertension type: primary hypertension Qualified Code(s): I10 - Essential (primary) hypertension (9) Hyperlipemia Hyperlipidemia type: mixed hyperlipidemia Qualified Code(s): E78.2 - Mixed hyperlipidemia
--- NOTE | 2023-07-07 20:01 | Billing Data ---
Date of Service July 07, 2023 Coding Level of Care Code 26061 INT INP/OBS CARE
[2023-07-07] MEDS: ALBUT/IPRATROP 3MG/0.5MG NEB 3 ML VIAL NEB SCH (22:01)
--- NOTE | 2023-07-07 22:02 | CT Scan Report ---
Exam(s): CT SINUSES EXAM: CT Maxillofacial Sinuses Without Intravenous Contrast CLINICAL HISTORY: Reason for exam: prolonged bronchitis/SOB, elevated eosinophils. TECHNIQUE: Computed tomography images of the maxillofacial sinuses without intravenous contrast. CTDI is 31.09 mGy and DLP is 598.57 mGy-cm. Automated exposure control was utilized for the study. A dose lowering technique was utilized adhering to the principles of ALARA. COMPARISON: No relevant prior studies available. FINDINGS: Maxillary sinuses: Unremarkable. No air-fluid levels. Sphenoid sinuses: Unremarkable. No air-fluid levels. Frontal sinuses: Unremarkable. No air-fluid levels. Ethmoid air cells: Unremarkable. No air-fluid levels. Nasal cavity/septum: No acute findings. Bones/joints: No acute fracture. Soft tissues: Unremarkable. IMPRESSION: Normal sinus CT. Electronically signed by: Marci Lucas MD 07/07/23 22:01 PM
[2023-07-07] MEDS: methylPREDNISolone 40 MG in SYRINGE 0 ML IV SCH (22:03)
[2023-07-08 08:08] LABS: Basophils # (auto) 0.02 K/uL (0.00-0.20); Basophils % (auto) 0.1 %; Hematocrit (blood only) 47.6 % (42.0-52.0); Hemoglobin 15.7 g/dl (14.0-18.0); Immature Granulocytes % (auto) 0.7 %; Lymphocytes # (auto) 0.88 K/uL (1.20-3.40); Lymphocytes % (auto) 5.9 %; Mean Corpuscular Hemoglobin 29.7 pg (25.0-34.0); Mean Corpuscular Volume 90.2 fL (80.0-100.0); Mean Platelet Volume 8.9 fL (9.4-12.4); Monocytes # (auto) 0.62 K/uL (0.11-0.59); Monocytes % (auto) 4.2 %; Neutrophils # (auto) 13.24 K/uL (1.40-6.50); Neutrophils % (auto) 89.1 %; Platelet Count 248 K/uL (130-400); RDW Coefficient of Variation 13.2 % (11.5-14.5); Red Blood Count 5.28 M/uL (4.70-6.10); White Blood Count 14.86 K/ul (4.8-10.8)
[2023-07-08 08:20] LABS: C Reactive Protein < 0.50 mg/dl (0-0.5); Creatinine Clr Calc Pharmacy 114.7 ml/min; Est GFR (African American) 105.1 ml/min; Est GFR (Non-African American) 90.6 ml/min
[2023-07-08 08:35] LABS: Estimated Average Glucose 131 mg/dl; Hemoglobin A1C 6.2 % (4.5-5.6)
[2023-07-08] MEDS: ALBUT/IPRATROP 3MG/0.5MG NEB 3 ML VIAL NEB SCH (08:46)
[2023-07-08] MEDS: FLUTICASONE/VILANTEROL 100/25MCG 14 PUFFS/INHALER INH SCH (09:15)
[2023-07-08] MEDS: methylPREDNISolone 40 MG in SYRINGE 0 ML IV SCH (09:16)
[2023-07-08] MEDS ORDERED: CETIRIZINE HCL 10 MG TABLET PO SCH (09:45)
[2023-07-08] MEDS: ENALAPRIL MALEATE 10 MG TAB PO SCH (10:11)
[2023-07-08] MEDS: METOPROLOL SUCC 25MG EXT REL TAB PO SCH (10:11)
[2023-07-08] MEDS: ROSUVASTATIN CALCIUM 20 MG TAB PO SCH (10:11)
[2023-07-08] MEDS ORDERED: ALBUT/IPRATROP 3MG/0.5MG NEB 3 ML VIAL NEB PRN (10:43)
--- NOTE | 2023-07-08 11:17 | Discharge Summary ---
Discharge Summary Date of Service July 08, 2023 Notes For Next Care Provider -Establish care with pulmonology - likely needs PFTs -Establish care with allergy - could be a good candidate for allergy shots -Sputum Culture pending - Discharged with steroid taper and breo inhaler Medication Changes From Visit -Steroid taper -Started Breo ellipta - Started daily allergy medicine Admission HPI Per Admitting Provider Patient is a 62-year-old male with past medical history of obesity, cervical stenosis of spine, hypertension, prediabetes, hyperlipidemia, and PVCs who presents to the hospital for evaluation of shortness of breath. It seems that this has been a 2-month long issue since being diagnosed with bronchitis. He has been on several antibiotics and bouts of steroids improve his symptoms at the time but do not seem to be resolving the problem. He has occasional flares of coughing that is dry and nonproductive. No history of hemoptysis. Denies any nausea or vomiting. No history of pulmonary function testing. He does take an inhaler at home but states that this does not always help his shortness of breath. Denies any chest pain or headache. Patient is a never smoker. No other complaints at this time. ED course: Patient brought back and evaluated by provider. Labs are unremarkable other than a D-dimer of greater than 1000. Chest x-ray is unremarkable. Patient had CTA of the chest on 07/01/2023 with evidence of mild bronchitis without pulmonary embolism. Venous Doppler was ordered due to elevated D-dimer and is pending at the time of writing this note. Patient was given steroids and DuoNeb with some improvement. The hospitalist service was consulted for admission for subjective dyspnea without hypoxia. Principal Dx & Hospital Course #1 = Principal Diagnosis (1) Dyspnea: Unsure of specific etiology at this time but seems to be an exacerbation of a chronic issue - possibly eosinophilic asthma -Imaging overall showing no pathology excluding pulmonary embolism, pneumonia, or consolidation -CTA done 07/01 -Patient would benefit from pulmonary function testing, which could be done outpatient -DuoNeb every 4 hours as needed for wheezing -Patient reporting change in sputum color --> sputum cultured ordered -Pending at discharge -Incentive Spirometer -CT sinus: WNL -Echo: EF 60% no wall motion abnormalities (2) Asthma exacerbation: Patient tells me he has never been diagnosed with asthma in the past, had just received inhalers and nebulizer machine in the last two months. -Started on 125 mg of methylprednisolone in the ED, switch to 40 mg daily 07/07 - increased to BID Discharged with prologned prednisone taper -Continue Breo once daily at discharge -Patient will benefit from pulmonary function test in outpatient setting (3) Hypoxia: -Secondary to conditions above -Stable on RA, informal walk test maintained 93-95% (4) Cough: -Secondary to bronchitis and postnasal drip - Can continue Mucinex or Delsym outpatient (5) Obesity: - As above, may be contributing and causing a restrictive pattern (6) Cervical stenosis of spine: - Noted, no medications for this (7) Hypertension: -Continue ramipril -In theory LEBRON inhibitors can have the side effect of cough at any time despite long-term use, consider switching to ARB (8) Prediabetes: - Noted, no need for insulin at this time -A1c 6.2, follow up with PCP (9) Hyperlipemia: - Continue statin Plan Discharge to home, Recommend follow up with PCP and establish care with pulm and allergy Discharge Exam General: WN/WD, NAD, VS as above Resp: able to speak in complete multiple sentences today, no wheeze, but lungs continue to be shallow/constricted CV: RRR, no murmur, Abd: normal bowel sounds, non tender, no hepatosplenomegaly Extremities: Moves all extremities, Edema to the left leg but patient reports chronic s/p surgery, no edema to the right leg. Neuro: A&O x3, Updated Medication List Medication Instructions Recorded Confirmed Type metoprolol succinate 25 mg 25 mg PO QAM #90 tabs 05/24/23 07/06/23 Rx tablet,extended release 24 hr ramipril 10 mg capsule 10 mg PO QAM #90 caps 05/24/23 07/06/23 Rx rosuvastatin 20 mg tablet 20 mg PO QAM #90 tabs 05/24/23 07/06/23 Rx albuterol sulfate 90 mcg/actuation 2 puff inhalation Q6H PRN 05/28/23 07/06/23 Rx aerosol inhaler shortness of breath or wheezing #6.7 grams albuterol sulfate 1.25 mg/3 mL 1.25 mg (3 mL) inhalation QID PRN 07/01/23 07/06/23 Rx solution for nebulization shortness of breath or wheezing #75 mL compressor, for nebulizer #1 ea 07/01/23 07/06/23 Rx dextromethorphan HBr 15 mg/5 mL 15 mg (5 mL) PO Q8H PRN cough #118 07/06/23 07/06/23 Rx oral liquid mL fluticasone furoate 100 1 inh inhalation DAILY #60 ea 07/08/23 Rx mcg-vilanterol 25 mcg/dose inhalation powder (Breo Ellipta) prednisone 10 mg tablet See Taper PO DAILY #63 tabs 07/08/23 Rx Hospital Stay Data Consultations 07/06/23 21:45 ED Decision to Admit Stat Diagnostic Imagining Performed 07/06/23 20:21 US venous doppler LE LT Stat 07/07/23 19:12 CT sinus wo con Routine Pending Results Patient Have Any Pending Studies at Discharge: Yes (sputum Culture ) Discharge Instructions Given to Patient (Per Discharging Provider) Mr. Qureshi, You were hospitalized after having shortness of breath on exertion for the last 2-month. During your stay you received IV steroids and more frequent breathing treatments. Your chest x-ray showed no pneumonia or other acute process. We did Dopplers of your legs, that showed no DVT (blood clot). We also did a CT scan of your sinuses that was normal. 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 Medication Changes at Discharge: - We started you on a daily inhaler - Breo, you will continue this daily. - We are giving you steroids while in the hospital, you will be discharged on extended oral steroid taper. These can cause insomnia and I would recommend you take them in the morning. Start the following taper the morning of 07/09: 60 mg daily for 3 Days; 50 mg daily for 3 Days; 40 mg daily for 3 Days; 30 mg daily for 3 Days; 20 mg daily for 3 Days; 10 mg daily for 3 Days -You were started on daily allergy medication, Zyrtec. You should take this daily as well. You can buy this [id number] at any pharmacy. As we discussed, this has been a recurring issue for you and will need further workup. We recommend the following: - Follow-up with your PCP for final sputum culture and elevated hemoglobin A1c - Establish care with pulmonology for pulmonary function testing, official diagnosis and current treatment plans - Establish care with Allergy - may need further testing or allergy shots. the information for the pulmonology and allergy office is above in this packet As we discussed it will be very important to avoid triggers, continue use of air purifiers in your home (be sure to empty and clean them frequently). If you have any new or worsening symptoms, please contact your PCP or return to the ER. It was our pleasure taking care of you, Monserrat Bashir PA-C Total Time Total Time Spent Total Time Spent (In Minutes): 40 Coding Level of Care Code 80699 INP/OBS DISCH >30 MIN Diagnoses Dyspnea R06.00 Asthma exacerbation J45.901 Hypoxia R09.02 Cough R05.9 Class 2 obesity without serious comorbidity with body mass index (BMI) of 37.0 to 37.9 in adult, unspecified obesity type E66.9; Z68.37 Body mass index: BMI 37.0-37.9 Obesity classification: adult class 2 (BMI 35 - 39.9) Obesity type: unspecified obesity type Serious obesity comorbidity presence: without serious comorbidity Cervical stenosis of spine M48.02 Primary hypertension I10 Hypertension type: primary hypertension Prediabetes R73.03 Mixed hyperlipidemia E78.2 Hyperlipidemia type: mixed hyperlipidemia
--- NOTE | 2023-07-08 13:41 | XCELERA ---
[id number] [id number]
--- NOTE | 2023-07-09 18:13 | Electrocardiogram Report ---
Test Reason : Blood Pressure : / mmHG Vent. Rate : 084 BPM Atrial Rate : 084 BPM P-R Int : 158 ms QRS Dur : 104 ms QT Int : 388 ms P-R-T Axes : 052 081 048 degrees QTc Int : 458 ms Normal sinus rhythm Normal ECG When compared with ECG of 07-JUN-2023 22:47, No significant change was found Confirmed by Anderson Potts [id number] on 07/09/2023 6:12:42 PM Referred By: Clifford Beckford Confirmed By:Anderson Potts
== END 2023-07-08 14:45 | disposition home or self-care (01) ==
LOC: ED 18:35 → 3W 18:35 → SUATTDRO 23:16 → 3W 07-07 00:26